=== PATIENT | male | born 1980 | race Asian ===

== ENCOUNTER 2019-04-06 11:05 | Emergency (ER) | payer OTHER, SELFPAY ==
[2019-04-06 11:08] VITALS: BP 132/81; PULSE 69; RESP 18; TEMP 36.6; O2SAT 98; BMI 31.7
--- NOTE | 2019-04-06 12:25 | ED.MALEGU ---
HPI - Male Genitourinary <Fern Cooley PA-C - Last Filed: 04/06/19 19:22> General Chief complaint: Urogenital-Male Stated complaint: Low back Pain Time Seen by Provider: 04/06/19 12:12 Source: patient Mode of arrival: ambulatory Limitations: no limitations History of Present Illness HPI Narrative: This healthy 38-year-old male comes to ED secondary to onset of more than 1 week of bilateral low back and flank area pain without any new activity or known trauma. He states that there is a low-grade constant ache, worse after drinking any fluids. There are no alleviating features. He states that pain radiates down into the groin area bilaterally for the last few days, worse on the right side since yesterday. He noticed his right testicle was sore yesterday and seemed somewhat swollen this morning in the shower. He denies any urinary symptoms. He denies any discharge or STD concerns. No hematuria. He states that he has not had any fever, no recent travel or exposures. He has not had any rashes. He denies any recent cough or upper respiratory symptoms. Denies any chest pain or dyspnea. Denies any abdominal pain aside from above. He states he had some mild nausea when symptoms started but none currently, no vomiting, denies bowel habit changes. He denies any pain radiating to the extremities, no weakness or paresthesia in the extremities. He states that he has been generally going about his usual activities with the back pain, but decided to come in today due to the increasing groin pain and testicular swelling. He states he thinks he has a history of varicocele but not on that side. He states that he did take some Aleve which seemed to help once. Took some azo which did not help symptoms. Related Data Previous Rx's Medication Instructions Recorded cyclobenzaprine 10 mg PO Q8H PRN #14 tab 04/06/19 levofloxacin [Levaquin] 500 mg PO DAILY 10 Days #10 tab 04/06/19 meloxicam [Mobic] 15 mg PO DAILY #20 tab 04/06/19 Allergies Allergy/AdvReac Type Severity Reaction Status Date / Time No Known Drug Allergies Allergy Verified 04/06/19 11:21 Review of Systems <Fern Cooley PA-C - Last Filed: 04/06/19 19:22> Review of Systems ROS Unobtainable: All systems reviewed & are unremarkable except as noted in HPI and below PFSH <Fern Cooley PA-C - Last Filed: 04/06/19 19:22> Medical History (Updated 04/06/19 @ 15:12 by Fern Cooley PA-C) No chronic problems (Chronic) Surgical History (Updated 04/06/19 @ 13:02 by Fern Cooley PA-C) Status post lumbar discectomy (Chronic) Social History Smoking Status: Never smoker Social History Smoking Status: Never smoker Exam <Fern Cooley PA-C - Last Filed: 04/06/19 19:22> Narrative Exam Narrative: GENERAL APPEARANCE: Patient sitting comfortably, in no distress. HEENT: PERRL, EOMI, no scleral icterus NECK: Supple LUNGS: Clear to auscultation bilaterally. HEART: Rate and rhythm regular, normal S1 and S2, no S3 or S4. ABDOMEN: Soft, nondistended, bowel sounds present x 4 quadrants, no masses palpable, no hepatosplenomegaly. Mild left UQ to midline tenderness, no CVAT EXTREMITIES: No edema, no calf tenderness DERMATOLOGIC: No jaundice or exanthem NEUROLOGIC: Alert and oriented with normal speech, gait, and coordination MS: No point tenderness over the thoracolumbar spine. Full active range of motion of the trunk. He has 1 mildly tender trigger points right mid lumbar at the mid scapular line : Right testes tender, mild edema, difficult to fully palpate secondary to tenderness but there is a nodular area that may be a varicocele, left is normal, no hernia, no inguinal nodes. No penile discharge or lesions Initial Vital Signs Initial Vital Signs: Vital Signs Temperature 97.8 F 04/06/19 11:08 Pulse Rate 69 04/06/19 11:08 Respiratory Rate 18 04/06/19 11:08 Blood Pressure 132/81 04/06/19 11:08 Pulse Oximetry 98 04/06/19 11:08 <Alycia Reid DO - Last Filed: 04/09/19 09:03> Initial Vital Signs Initial Vital Signs: Vital Signs Temperature 97.8 F 04/06/19 11:08 Pulse Rate 69 04/06/19 11:08 Respiratory Rate 18 04/06/19 11:08 Blood Pressure 132/81 04/06/19 11:08 Pulse Oximetry 98 04/06/19 11:08 Course <Fern Cooley PA-C - Last Filed: 04/06/19 19:22> Orders Ordered: ED Orders 04/06/19 11:10 Urine Chlamydia Gonorrhea PCR Stat 04/06/19 12:36 US renal complete Stat US scrotum Stat 04/06/19 13:45 Complete Blood Count AUTO DIFF Stat Comprehensive Metabolic Panel Stat Lipase Stat Vital Signs - 8 hr 04/06/19 14:22 Pulse Rate 65 Respiratory Rate 16 Blood Pressure [Left Arm] 117/70 Pulse Oximetry 100 <Alycia Reid DO - Last Filed: 04/09/19 09:03> Orders Ordered: ED Orders 04/06/19 11:10 Urine Chlamydia Gonorrhea PCR Stat 04/06/19 12:36 US renal complete Stat US scrotum Stat 04/06/19 13:45 Complete Blood Count AUTO DIFF Stat Comprehensive Metabolic Panel Stat Lipase Stat Vital Signs - 8 hr 04/06/19 14:22 Pulse Rate 65 Respiratory Rate 16 Blood Pressure [Left Arm] 117/70 Pulse Oximetry 100 MDM - Male Genitourinary <Fern Cooley PA-C - Last Filed: 04/06/19 19:22> Lab Data Result diagrams: 04/06/19 13:45 04/06/19 13:45 Lab Results 04/06/19 04/06/19 04/06/19 Range/Units 11:10 13:45 13:45 WBC 5.6 (4.5-11.0) X10^3/uL RBC 5.05 (4.5-5.9) X10^6/uL Hgb 15.4 (13.5-17.5) g/dL Hct 46.4 (41-53) % MCV 91.9 (80-100) fL MCH 30.5 (26-34) PG MCHC 33.2 (30-36) % RDW 13.4 (11.6-14.8) % Plt Count 206 (150-400) X10^3/uL Neut % (Auto) 50.1 (50-75) % Lymph % (Auto) 40.0 (25-40) % [place] % (Auto) 7.9 (3-14) % Eos % (Auto) 1.5 L (2-4) % Baso % (Auto) 0.5 (0-2) % Neut # (Auto) 2800 (7801-4881) /uL Lymph # (Auto) 2200 (1016-3659) /uL [place] # (Auto) 400 (0-900) /uL Eos # (Auto) 100 (0-450) /uL Baso # (Auto) 0 (0-100) /uL Sodium 139 (137-145) mmol/L Potassium 4.0 (3.4-5.1) mmol/L Chloride 102 (98-107) mmol/L Carbon Dioxide 30 (22-32) mmol/L BUN 16 (9-20) mg/dL Creatinine 0.90 (0.66-1.25) mg/dL Estimated GFR > 60.0 (>60) mL/min BUN/Creatinine Ratio 17.8 (6-22) Glucose 84 (70-100) mg/dL Calcium 9.2 (8.4-10.2) mg/dL Total Bilirubin 1.1 (0.2-1.3) mg/dL AST 39 (17-59) IU/L ALT 48 (21-72) IU/L Alkaline Phosphatase 75 (38-126) U/L Total Protein 7.7 (6.3-8.2) g/dL Albumin 4.4 (3.5-5.0) g/dL Globulin 3.3 (1.7-4.1) g/dL Albumin/Globulin Ratio 1.3 (1.0-2.8) Lipase 75 (23-300) U/L Ur Chlamydia DNA (PCR) Not detected N gonorrhoeae DNA (PCR) Not detected Urine Dip Bedside Urine Glucose Negative Bedside Urine Bilirubin - Negative Bedside Urine Ketone - Negative Urine Specific [place] 1.020 Bedside Urine Occult Blood - Negative Bedside Urine pH 6.0 Bedside Urine Protein - Negative Bedside Urine Urobilinogen - Negative Bedside Urine Nitrite - Negative Bedside Urine Leukocytes - Negative Esterase Imaging Data KUB/scrotal US: Radiologist's impression: [facility] DATE TYPE STATUS AUTHOR Pratima 04/06/19 12:36 Kimberlyn Rousseau 04/06/19 12:36 Kimberlyn Rousseau Dustin E 38, 1980 REG ER, ED.LOC - Main ED: R05 162.56cm 83.915kg BMI: 31.8kg/m? Urogenital-Male Search Chart No Data to Display No Data to Display ONSET Today 11:08 Nithin Farrar 38 M [address] [address] Ultrasound Report Signed Patient: Nithin Farrar EMR#: [id number] : 1980Acct:[id number] Age/Sex: 38 / MDate of Service: 04/06/19 Loc: ED Accession Number: [id number] Procedure: US renal complete Ordering Provider: Fern Cooley P.A-C PROCEDURE: US RENAL COMPLETE INDICATIONS: BILATERAL FLANK PAIN TECHNIQUE: Real-time scanning was performed of the kidneys and bladder, with image documentation. COMPARISON: None. FINDINGS: Kidneys: Kidneys are normal in size. Right kidney measures 9.0 cm long; left kidney measures 10.8 cm long. Right renal cortical thickness is 1.7 cm; left renal cortical thickness is 1.7 cm. Renal cortical echotexture is normal. No hydronephrosis or nephrolithiasis. No suspicious solid mass lesions. Bladder: The bladder was empty and could not be evaluated by ultrasound at the time of the study. Miscellaneous: No free pelvic fluid. IMPRESSION: No hydronephrosis or nephrolithiasis. Dictated by: Kimberlyn Rousesau M.D. on 04/06/2019 at 12:56 Approved by: Kimberlyn Rousseau M.D. on 04/06/2019 at 12:57 [facility] DATE TYPE STATUS AUTHOR Pratima 04/06/19 12:36 Kimberlyn Rousseau 04/06/19 12:36 Kimberlyn Rousseau Dustin E 38, 1980 REG ER, ED.LOC - Main ED: R05 162.56cm 83.915kg BMI: 31.8kg/m? Urogenital-Male Search Chart No Data to Display No Data to Display ONSET Today 11:08 Nithin Farrar 38 M [address] [address] Ultrasound Report Signed Patient: Nithin Farrar EMR#: [id number] : 1980Acct:[id number] Age/Sex: 38 / MDate of Service: 04/06/19 Loc: ED Accession Number: [id number] Procedure: US scrotum Ordering Provider: Fern Cooley P.A-C PROCEDURE: US SCROTUM INDICATIONS: RIGHT TESTICULAR PAIN; GROIN PAIN TECHNIQUE: Real-time scanning was performed of the scrotum and testicles, with image documentation. Color and pulse Doppler interrogation was performed of both testicles. COMPARISON: None. FINDINGS: Right: Testicle is normal in size at 3.7 x 1.8 x 2.3 cm, and homogenous in echotexture. The right testicle appears hyperemic with respect to the left testicle. Epididymis is normal in overall size and morphology. No hydrocele. There is a right varicocele. Overlying scrotal skin is normal in thickness. Left: Testicle is normal in size at 3.7 x 1.7 x 2.5 cm, and homogeneous in echotexture. Epididymis is normal in overall size and morphology. No hydrocele or varicoceles. Overlying scrotal skin is normal in thickness. Doppler: Color and pulse Doppler demonstrate normal and symmetric arterial flow in both testicles. IMPRESSION: 1. Right varicocele and right testicular hyperemia which may be associated with orchitis. These findings were discussed with Dr. Reid at 12:51 PM on 04/06/19. Dictated by: Kimberlyn Rousseau M.D. on 04/06/2019 at 12:47 Approved by: Kimberlyn Rousseau M.D. on 04/06/2019 at 12:50 <Alycia Reid, DO - Last Filed: 04/09/19 09:03> Lab Data Lab Results 04/06/19 04/06/19 04/06/19 Range/Units 11:10 13:45 13:45 WBC 5.6 (4.5-11.0) X10^3/uL RBC 5.05 (4.5-5.9) X10^6/uL Hgb 15.4 (13.5-17.5) g/dL Hct 46.4 (41-53) % MCV 91.9 (80-100) fL MCH 30.5 (26-34) PG MCHC 33.2 (30-36) % RDW 13.4 (11.6-14.8) % Plt Count 206 (150-400) X10^3/uL Neut % (Auto) 50.1 (50-75) % Lymph % (Auto) 40.0 (25-40) % [place] % (Auto) 7.9 (3-14) % Eos % (Auto) 1.5 L (2-4) % Baso % (Auto) 0.5 (0-2) % Neut # (Auto) 2800 (7146-5748) /uL Lymph # (Auto) 2200 (6466-7344) /uL [place] # (Auto) 400 (0-900) /uL Eos # (Auto) 100 (0-450) /uL Baso # (Auto) 0 (0-100) /uL Sodium 139 (137-145) mmol/L Potassium 4.0 (3.4-5.1) mmol/L Chloride 102 (98-107) mmol/L Carbon Dioxide 30 (22-32) mmol/L BUN 16 (9-20) mg/dL Creatinine 0.90 (0.66-1.25) mg/dL Estimated GFR > 60.0 (>60) mL/min BUN/Creatinine Ratio 17.8 (6-22) Glucose 84 (70-100) mg/dL Calcium 9.2 (8.4-10.2) mg/dL Total Bilirubin 1.1 (0.2-1.3) mg/dL AST 39 (17-59) IU/L ALT 48 (21-72) IU/L Alkaline Phosphatase 75 (38-126) U/L Total Protein 7.7 (6.3-8.2) g/dL Albumin 4.4 (3.5-5.0) g/dL Globulin 3.3 (1.7-4.1) g/dL Albumin/Globulin Ratio 1.3 (1.0-2.8) Lipase 75 (23-300) U/L Ur Chlamydia DNA (PCR) Not detected N gonorrhoeae DNA (PCR) Not detected Urine Dip Bedside Urine Glucose Negative Bedside Urine Bilirubin - Negative Bedside Urine Ketone - Negative Urine Specific [place] 1.020 Bedside Urine Occult Blood - Negative Bedside Urine pH 6.0 Bedside Urine Protein - Negative Bedside Urine Urobilinogen - Negative Bedside Urine Nitrite - Negative Bedside Urine Leukocytes - Negative Esterase Discharge Plan Departure Patient Disposition: Home Clinical Impression: Right varicocele, Orchitis of right testicle, Back muscle spasm Discharge Date/Time: 04/06/19 15:20 Interventions: ED Discharge Assessment Last Done: 04/06/19 15:20 Instructions: DI for Varicocele, DI for Low Back Pain, DI for Orchitis, DI for Muscle Spasm Activity Restrictions/Additional Instructions: Your blood work and urine studies did not show evidence of infection today, however you do have some enlarged veins in the right testicle and a little bit of inflammation which could be an early orchitis (this can be inflammatory or infectious change of the testicle). I have prescribed an antibiotic called levofloxacin in to [place] in and a [place] for you to scrap picker for this. Please start that right away. I have also prescribed a once daily anti-inflammatory call meloxicam as well as muscle relaxant called cyclobenzaprine for your back pain (do not drive while taking that as it can make you sleepy). I am not sure that your back pain that you have had for a week or so is related to the groin symptoms. Please try these medicines over the weekend and [place] to assess your progress and determine whether any further treatment or referral may be needed such as Urology evaluation. As we talked about, you should return to the ED if any acutely worsening symptoms or new symptoms over the weekend such as fever or vomiting. Thank you for your service! Prescriptions: New cyclobenzaprine 10 mg tablet 10 mg PO Q8H PRN (Reason: muscle spasm) Qty: 14 RF: 0 meloxicam [Mobic] 15 mg tablet 15 mg PO DAILY Qty: 20 RF: 0 levofloxacin [Levaquin] 500 mg tablet 500 mg PO DAILY 10 Days Qty: 10 RF: 0 Referrals: [facility] [Provider Group] <Alycia Reid DO - Last Filed: 04/09/19 09:03> Cosign ED Attending Huseyinature Attestation: I was immediately available in the department for consultation. This documentation has been reviewed and I agree with assessment and plan. Supervised by Alycia Reid DO
--- NOTE | 2019-04-06 12:36 | DI.US.S_ITS ---
PROCEDURE: US SCROTUM INDICATIONS: RIGHT TESTICULAR PAIN; GROIN PAIN TECHNIQUE: Real-time scanning was performed of the scrotum and testicles, with image documentation. Color and pulse Doppler interrogation was performed of both testicles. COMPARISON: None. FINDINGS: Right: Testicle is normal in size at 3.7 x 1.8 x 2.3 cm, and homogenous in echotexture. The right testicle appears hyperemic with respect to the left testicle. Epididymis is normal in overall size and morphology. No hydrocele. There is a right varicocele. Overlying scrotal skin is normal in thickness. Left: Testicle is normal in size at 3.7 x 1.7 x 2.5 cm, and homogeneous in echotexture. Epididymis is normal in overall size and morphology. No hydrocele or varicoceles. Overlying scrotal skin is normal in thickness. Doppler: Color and pulse Doppler demonstrate normal and symmetric arterial flow in both testicles. IMPRESSION: 1. Right varicocele and right testicular hyperemia which may be associated with orchitis. These findings were discussed with Dr. Reid at 12:51 PM on 04/06/19. Dictated by: Kimberlyn Rousseau M.D. on 04/06/2019 at 12:47 Approved by: Kimberlyn Rousseau M.D. on 04/06/2019 at 12:50
--- NOTE | 2019-04-06 12:36 | DI.US.S_ITS ---
PROCEDURE: US RENAL COMPLETE INDICATIONS: BILATERAL FLANK PAIN TECHNIQUE: Real-time scanning was performed of the kidneys and bladder, with image documentation. COMPARISON: None. FINDINGS: Kidneys: Kidneys are normal in size. Right kidney measures 9.0 cm long; left kidney measures 10.8 cm long. Right renal cortical thickness is 1.7 cm; left renal cortical thickness is 1.7 cm. Renal cortical echotexture is normal. No hydronephrosis or nephrolithiasis. No suspicious solid mass lesions. Bladder: The bladder was empty and could not be evaluated by ultrasound at the time of the study. Miscellaneous: No free pelvic fluid. IMPRESSION: No hydronephrosis or nephrolithiasis. Dictated by: Kimberlyn Rousseau M.D. on 04/06/2019 at 12:56 Approved by: Kimberlyn Rousseau M.D. on 04/06/2019 at 12:57
--- NOTE | 2019-04-06 12:58 | ED_ITS ---
HPI - Male Genitourinary <Fern Cooley PA-C - Last Filed: 04/06/19 19:22> General Chief complaint: Urogenital-Male Stated complaint: Low back Pain Time Seen by Provider: 04/06/19 12:12 Source: patient Mode of arrival: ambulatory Limitations: no limitations History of Present Illness HPI Narrative: This healthy 38-year-old male comes to ED secondary to onset of more than 1 week of bilateral low back and flank area pain without any new activity or known trauma. He states that there is a low-grade constant ache, worse after drinking any fluids. There are no alleviating features. He states that pain radiates down into the groin area bilaterally for the last few days, worse on the right side since yesterday. He noticed his right testicle was sore yesterday and seemed somewhat swollen this morning in the shower. He denies any urinary symptoms. He denies any discharge or STD concerns. No hematuria. He states that he has not had any fever, no recent travel or exposures. He has not had any rashes. He denies any recent cough or upper respiratory symptoms. Denies any chest pain or dyspnea. Denies any abdominal pain aside from above. He states he had some mild nausea when symptoms started but none currently, no vomiting, denies bowel habit changes. He denies any pain radiating to the extremities, no weakness or paresthesia in the extremities. He states that he has been generally going about his usual activities with the back pain, but decided to come in today due to the increasing groin pain and testicular swelling. He states he thinks he has a history of varicocele but not on that side. He states that he did take some Aleve which seemed to help once. Took some azo which did not help symptoms. Related Data Previous Rx's Medication Instructions Recorded cyclobenzaprine 10 mg PO Q8H PRN #14 tab 04/06/19 levofloxacin [Levaquin] 500 mg PO DAILY 10 Days #10 tab 04/06/19 meloxicam [Mobic] 15 mg PO DAILY #20 tab 04/06/19 Allergies Allergy/AdvReac Type Severity Reaction Status Date / Time No Known Drug Allergies Allergy Verified 04/06/19 11:21 Review of Systems <Fern Cooley PA-C - Last Filed: 04/06/19 19:22> Review of Systems ROS Unobtainable: All systems reviewed & are unremarkable except as noted in HPI and below PFSH <Fern Cooley PA-C - Last Filed: 04/06/19 19:22> Medical History (Updated 04/06/19 @ 15:12 by Fern Cooley PA-C) No chronic problems (Chronic) Surgical History (Updated 04/06/19 @ 13:02 by Fern Cooley PA-C) Status post lumbar discectomy (Chronic) Social History Smoking Status: Never smoker Social History Smoking Status: Never smoker Exam <Fern Cooley PA-C - Last Filed: 04/06/19 19:22> Narrative Exam Narrative: GENERAL APPEARANCE: Patient sitting comfortably, in no distress. HEENT: PERRL, EOMI, no scleral icterus NECK: Supple LUNGS: Clear to auscultation bilaterally. HEART: Rate and rhythm regular, normal S1 and S2, no S3 or S4. ABDOMEN: Soft, nondistended, bowel sounds present x 4 quadrants, no masses palpable, no hepatosplenomegaly. Mild left UQ to midline tenderness, no CVAT EXTREMITIES: No edema, no calf tenderness DERMATOLOGIC: No jaundice or exanthem NEUROLOGIC: Alert and oriented with normal speech, gait, and coordination MS: No point tenderness over the thoracolumbar spine. Full active range of motion of the trunk. He has 1 mildly tender trigger points right mid lumbar at the mid scapular line : Right testes tender, mild edema, difficult to fully palpate secondary to tenderness but there is a nodular area that may be a varicocele, left is normal, no hernia, no inguinal nodes. No penile discharge or lesions Initial Vital Signs Initial Vital Signs: Vital Signs Temperature 97.8 F 04/06/19 11:08 Pulse Rate 69 04/06/19 11:08 Respiratory Rate 18 04/06/19 11:08 Blood Pressure 132/81 04/06/19 11:08 Pulse Oximetry 98 04/06/19 11:08 <Alycia Reid DO - Last Filed: 04/09/19 09:03> Initial Vital Signs Initial Vital Signs: Vital Signs Temperature 97.8 F 04/06/19 11:08 Pulse Rate 69 04/06/19 11:08 Respiratory Rate 18 04/06/19 11:08 Blood Pressure 132/81 04/06/19 11:08 Pulse Oximetry 98 04/06/19 11:08 Course <Fern Cooley PA-C - Last Filed: 04/06/19 19:22> Orders Ordered: ED Orders 04/06/19 11:10 Urine Chlamydia Gonorrhea PCR Stat 04/06/19 12:36 US renal complete Stat US scrotum Stat 04/06/19 13:45 Complete Blood Count AUTO DIFF Stat Comprehensive Metabolic Panel Stat Lipase Stat Vital Signs - 8 hr 04/06/19 14:22 Pulse Rate 65 Respiratory Rate 16 Blood Pressure [Left Arm] 117/70 Pulse Oximetry 100 <Alycia Reid DO - Last Filed: 04/09/19 09:03> Orders Ordered: ED Orders 04/06/19 11:10 Urine Chlamydia Gonorrhea PCR Stat 04/06/19 12:36 US renal complete Stat US scrotum Stat 04/06/19 13:45 Complete Blood Count AUTO DIFF Stat Comprehensive Metabolic Panel Stat Lipase Stat Vital Signs - 8 hr 04/06/19 14:22 Pulse Rate 65 Respiratory Rate 16 Blood Pressure [Left Arm] 117/70 Pulse Oximetry 100 MDM - Male Genitourinary <Fern Cooley PA-C - Last Filed: 04/06/19 19:22> Lab Data Result diagrams: 04/06/19 13:45 04/06/19 13:45 Lab Results 04/06/19 04/06/19 04/06/19 Range/Units 11:10 13:45 13:45 WBC 5.6 (4.5-11.0) X10^3/uL RBC 5.05 (4.5-5.9) X10^6/uL Hgb 15.4 (13.5-17.5) g/dL Hct 46.4 (41-53) % MCV 91.9 (80-100) fL MCH 30.5 (26-34) PG MCHC 33.2 (30-36) % RDW 13.4 (11.6-14.8) % Plt Count 206 (150-400) X10^3/uL Neut % (Auto) 50.1 (50-75) % Lymph % (Auto) 40.0 (25-40) % [place] % (Auto) 7.9 (3-14) % Eos % (Auto) 1.5 L (2-4) % Baso % (Auto) 0.5 (0-2) % Neut # (Auto) 2800 (6673-3541) /uL Lymph # (Auto) 2200 (4670-6581) /uL [place] # (Auto) 400 (0-900) /uL Eos # (Auto) 100 (0-450) /uL Baso # (Auto) 0 (0-100) /uL Sodium 139 (137-145) mmol/L Potassium 4.0 (3.4-5.1) mmol/L Chloride 102 (98-107) mmol/L Carbon Dioxide 30 (22-32) mmol/L BUN 16 (9-20) mg/dL Creatinine 0.90 (0.66-1.25) mg/dL Estimated GFR > 60.0 (>60) mL/min BUN/Creatinine Ratio 17.8 (6-22) Glucose 84 (70-100) mg/dL Calcium 9.2 (8.4-10.2) mg/dL Total Bilirubin 1.1 (0.2-1.3) mg/dL AST 39 (17-59) IU/L ALT 48 (21-72) IU/L Alkaline Phosphatase 75 (38-126) U/L Total Protein 7.7 (6.3-8.2) g/dL Albumin 4.4 (3.5-5.0) g/dL Globulin 3.3 (1.7-4.1) g/dL Albumin/Globulin Ratio 1.3 (1.0-2.8) Lipase 75 (23-300) U/L Ur Chlamydia DNA (PCR) Not detected N gonorrhoeae DNA (PCR) Not detected Urine Dip Bedside Urine Glucose Negative Bedside Urine Bilirubin - Negative Bedside Urine Ketone - Negative Urine Specific Kennedy 1.020 Bedside Urine Occult Blood - Negative Bedside Urine pH 6.0 Bedside Urine Protein - Negative Bedside Urine Urobilinogen - Negative Bedside Urine Nitrite - Negative Bedside Urine Leukocytes - Negative Esterase Imaging Data KUB/scrotal US: Radiologist's impression: [facility] DATE TYPE STATUS AUTHOR Pratima 04/06/19 12:36 Kimberlyn Rousseau 04/06/19 12:36 Kimberlyn Rousseau Dustin E 38, 1980 REG ER, ED.LOC - Main ED: R05 162.56cm 83.915kg BMI: 31.8kg/m? Urogenital-Male Search Chart No Data to Display No Data to Display ONSET Today 11:08 Nithin Farrar 38 M [address] [address] Ultrasound Report Signed Patient: Nithin Farrar EMR#: [id number] : 1980Acct:[id number] Age/Sex: 38 / MDate of Service: 04/06/19 Loc: ED Accession Number: [id number] Procedure: US renal complete Ordering Provider: Fern Cooley P.A-C PROCEDURE: US RENAL COMPLETE INDICATIONS: BILATERAL FLANK PAIN TECHNIQUE: Real-time scanning was performed of the kidneys and bladder, with image documentation. COMPARISON: None. FINDINGS: Kidneys: Kidneys are normal in size. Right kidney measures 9.0 cm long; left kidney measures 10.8 cm long. Right renal cortical thickness is 1.7 cm; left renal cortical thickness is 1.7 cm. Renal cortical echotexture is normal. No hydronephrosis or nephrolithiasis. No suspicious solid mass lesions. Bladder: The bladder was empty and could not be evaluated by ultrasound at the time of the study. Miscellaneous: No free pelvic fluid. IMPRESSION: No hydronephrosis or nephrolithiasis. Dictated by: Kimberlyn Rousseau M.D. on 04/06/2019 at 12:56 Approved by: Kimberlyn Rousseau M.D. on 04/06/2019 at 12:57 [facility] DATE TYPE STATUS AUTHOR Pratima 04/06/19 12:36 Kimberlyn Rousseau 04/06/19 12:36 Kimberlyn Rousseau Dustin E 38, 1980 REG ER, ED.LOC - Main ED: R05 162.56cm 83.915kg BMI: 31.8kg/m? Urogenital-Male Search Chart No Data to Display No Data to Display ONSET Today 11:08 Nithin Farrar 38 M [address] [address] Ultrasound Report Signed Patient: Nithin Farrar EMR#: [id number] : 1980Acct:[id number] Age/Sex: 38 / MDate of Service: 04/06/19 Loc: ED Accession Number: [id number] Procedure: US scrotum Ordering Provider: Fern Cooley P.A-C PROCEDURE: US SCROTUM INDICATIONS: RIGHT TESTICULAR PAIN; GROIN PAIN TECHNIQUE: Real-time scanning was performed of the scrotum and testicles, with image documentation. Color and pulse Doppler interrogation was performed of both testicles. COMPARISON: None. FINDINGS: Right: Testicle is normal in size at 3.7 x 1.8 x 2.3 cm, and homogenous in echotexture. The right testicle appears hyperemic with respect to the left testicle. Epididymis is normal in overall size and morphology. No hydrocele. There is a right varico jayant. Overlying scrotal skin is normal in thickness. Left: Testicle is normal in size at 3.7 x 1.7 x 2.5 cm, and homogeneous in echotexture. Epididymis is normal in overall size and morphology. No hydrocele or varicoceles. Overlying scrotal skin is normal in thickness. Doppler: Color and pulse Doppler demonstrate normal and symmetric arterial flow in both testicles. IMPRESSION: 1. Right varicocele and right testicular hyperemia which may be associated with orchitis. These findings were discussed with Dr. Reid at 12:51 PM on 04/06/19. Dictated by: Kimberlyn Rousseau M.D. on 04/06/2019 at 12:47 Approved by: Kimberlyn Rousseau M.D. on 04/06/2019 at 12:50 <Alycia Reid, DO - Last Filed: 04/09/19 09:03> Lab Data Lab Results 04/06/19 04/06/19 04/06/19 Range/Units 11:10 13:45 13:45 WBC 5.6 (4.5-11.0) X10^3/uL RBC 5.05 (4.5-5.9) X10^6/uL Hgb 15.4 (13.5-17.5) g/dL Hct 46.4 (41-53) % MCV 91.9 (80-100) fL MCH 30.5 (26-34) PG MCHC 33.2 (30-36) % RDW 13.4 (11.6-14.8) % Plt Count 206 (150-400) X10^3/uL Neut % (Auto) 50.1 (50-75) % Lymph % (Auto) 40.0 (25-40) % [place] % (Auto) 7.9 (3-14) % Eos % (Auto) 1.5 L (2-4) % Baso % (Auto) 0.5 (0-2) % Neut # (Auto) 2800 (8073-4780) /uL Lymph # (Auto) 2200 (8700-1521) /uL [place] # (Auto) 400 (0-900) /uL Eos # (Auto) 100 (0-450) /uL Baso # (Auto) 0 (0-100) /uL Sodium 139 (137-145) mmol/L Potassium 4.0 (3.4-5.1) mmol/L Chloride 102 (98-107) mmol/L Carbon Dioxide 30 (22-32) mmol/L BUN 16 (9-20) mg/dL Creatinine 0.90 (0.66-1.25) mg/dL Estimated GFR > 60.0 (>60) mL/min BUN/Creatinine Ratio 17.8 (6-22) Glucose 84 (70-100) mg/dL Calcium 9.2 (8.4-10.2) mg/dL Total Bilirubin 1.1 (0.2-1.3) mg/dL AST 39 (17-59) IU/L ALT 48 (21-72) IU/L Alkaline Phosphatase 75 (38-126) U/L Total Protein 7.7 (6.3-8.2) g/dL Albumin 4.4 (3.5-5.0) g/dL Globulin 3.3 (1.7-4.1) g/dL Albumin/Globulin Ratio 1.3 (1.0-2.8) Lipase 75 (23-300) U/L Ur Chlamydia DNA (PCR) Not detected N gonorrhoeae DNA (PCR) Not detected Urine Dip Bedside Urine Glucose Negative Bedside Urine Bilirubin - Negative Bedside Urine Ketone - Negative Urine Specific Kennedy 1.020 Bedside Urine Occult Blood - Negative Bedside Urine pH 6.0 Bedside Urine Protein - Negative Bedside Urine Urobilinogen - Negative Bedside Urine Nitrite - Negative Bedside Urine Leukocytes - Negative Esterase Discharge Plan Departure Patient Disposition: Home Clinical Impression: Right varicocele, Orchitis of right testicle, Back muscle spasm Discharge Date/Time: 04/06/19 15:20 Interventions: ED Discharge Assessment Last Done: 04/06/19 15:20 Instructions: DI for Varicocele, DI for Low Back Pain, DI for Orchitis, DI for Muscle Spasm Activity Restrictions/Additional Instructions: Your blood work and urine studies did not show evidence of infection today, however you do have some enlarged veins in the right testicle and a little bit of inflammation which could be an early orchitis (this can be inflammatory or in fectious change of the testicle). I have prescribed an antibiotic called levofloxacin in to [facility] in and a [place] for you to slate picker for this. Please start that right away. I have also prescribed a once daily anti- inflammatory call meloxicam as well as muscle relaxant called cyclobenzaprine f or your back pain (do not drive while taking that as it can make you sleepy). I am not sure that your back pain that you have had for a week or so is related to the groin symptoms. Please try these medicines over the weekend and [place] to assess your progress and determine whether any further treatment or referral may be needed such as Urology evaluation. As we talked a bout, you should return to the ED if any acutely worsening symptoms or new symptoms over the weekend such as fever or vomiting. Thank you for your service! Prescriptions: New cyclobenzaprine 10 mg tablet 10 mg PO Q8H PRN (Reason: muscle spasm) Qty: 14 RF: 0 meloxicam [Mobic] 15 mg tablet 15 mg PO DAILY Qty: 20 RF: 0 levofloxacin [Levaquin] 500 mg tablet 500 mg PO DAILY 10 Days Qty: 10 RF: 0 Referrals: [facility] [Provider Group] <Alycia Reid DO - Last Filed: 04/09/19 09:03> Cosign ED Attending Huseyinature Attestation: I was immediately available in the department for consultation. This documentation has been reviewed and I agree with assessment and plan. Supervised by Alycia Reid DO
[2019-04-06 12:59] LABS: Urine N gonorrhoeae NOT DETECTED
[2019-04-06 13:02] LABS: Urine Chlamydia NOT DETECTED
[2019-04-06 14:01] LABS: Add Manual Diff / Slide Review NO; Basophils Absolute Auto 0 /uL (0-100); Basophils Percent Auto 0.5 % (0-2); Eosinophils Absolute Auto 100 /uL (0-450); Eosinophils Percent Auto 1.5 % (2-4); Hematocrit 46.4 % (41-53); Hemoglobin 15.4 g/dL (13.5-17.5); Lymphocytes Absolute Auto 2200 /uL (1100-4500); Mean Corpuscular HGB Conc 33.2 % (30-36); Mean Corpuscular Hemoglobin 30.5 PG (26-34); Mean Corpuscular Volume 91.9 fL (80-100); Monocytes Absolute Auto 400 /uL (0-900); Monocytes Percent Auto 7.9 % (3-14); Neutrophils Absolute Auto 2800 /uL (1500-7000); Neutrophils Percent Auto 50.1 % (50-75); Platelet Count 206 X10^3/uL (150-400); Red Blood Cell Count 5.05 X10^6/uL (4.5-5.9); Red Cell Distribution Width 13.4 % (11.6-14.8); White Blood Cell Count 5.6 X10^3/uL (4.5-11.0)
[2019-04-06 14:14] LABS: Alanine Aminotransferase 48 IU/L (21-72); Albumin 4.4 g/dL (3.5-5.0); Albumin Globulin Ratio 1.3 (1.0-2.8); Alkaline Phosphatase 75 U/L (38-126); Aspartate Aminotransferase 39 IU/L (17-59); BUN Creatinine Ratio 17.8 (6-22); Bilirubin Total 1.1 mg/dL (0.2-1.3); Blood Urea Nitrogen 16 mg/dL (9-20); Calcium 9.2 mg/dL (8.4-10.2); Carbon Dioxide 30 mmol/L (22-32); Chloride 102 mmol/L (98-107); Estimated Glomerular Filt Rate > 60.0 mL/min (>60); Globulin 3.3 g/dL (1.7-4.1); Glucose 84 mg/dL (70-100); HEMOLYSIS < 15 (0-50); Lipase 75 U/L (23-300); Sodium 139 mmol/L (137-145); Total Protein 7.7 g/dL (6.3-8.2)
[2019-04-06 14:22] VITALS: BP 117/70; PULSE 65; RESP 16; O2SAT 100
== END 2019-04-06 15:20 | disposition home or self-care (01) ==
PROVIDERS: Emergency Provider Internal Medicine
DX: I86.1 Scrotal varices (principal); N45.2 Orchitis; M62.830 Muscle spasm of back
CPT/HCPCS: 76770; 76870; 80053; 81003; 83690; 85025; 87491; 87591; 99282; 99284